=== PATIENT | male | born 1965 | race Caucasian/White ===

== ENCOUNTER 2017-03-13 20:44 | Emergency (ER) | payer OTHER ==
[~2017-03-13] VITALS: Ht 177.8 cm; Wt 81.1 kg
[~2017-03-13 20:44] MED LIST: LANSO15 PO; MUPI2CRE3 EX; TAB-TAB PO
[2017-03-13 20:47] VITALS: BP 144/67; PULSE 73; RESP 16; TEMP 98.3; O2SAT 98
--- NOTE | 2017-03-13 21:06 | PD ---
HPI Chief Complaint: Injury Time Seen by Provider: 20:54 Travel History International Travel<30 days: No Contact w/Intl Traveler<30days: No Traveled to known affect area: No History of Present Illness HPI The patient is a 51-year-old male who presents to the emergency department for nasal pain and swelling. The patient was playing softball earlier today when he dove, landing on his face. He does complain of an abrasion over the nasal bridge as well as some swelling to the nose. He does complain of initial bleeding from the nares bilaterally which has resolved. He also notes a superficial abrasion to left forehead. He denied any loss of consciousness with the injury. He denies any abrasions to the hands her knees. He is able to and bleed without difficulty, denies any significant headache. He denies taking any anticoagulants. Symptoms are mild, exacerbated after sliding tenderness softball game, and the bleeding resolved on its own. He denies any neck pain. The patient's last tetanus shot is unknown. [facility] Past Medical History Narrative Medical GERD Past Surgical History Narrative Surgical tonsillectomy, wisdom tooth surgery Social History Tobacco Use: No Allergies-Medications (Allergen,Severity, Reaction): Coded Allergies: No Known Allergies (Unverified , 12/22/15) Reported Meds & Prescriptions Reported Meds & Active Scripts Active Review of Systems Eyes: No: Visual changes HENT: Positive: Nosebleed, No: Headaches, Neck Pain Musculoskeletal: No: Pain Skin: Positive Other (abrasions over the nasal bridge and left forehead) Neurologic: No: Change in Mentation Physical Exam Narrative GENERAL: Awake, alert, very pleasant 51-year-old male who appears younger than his stated age and is in no acute respiratory distress. SKIN: Focused skin assessment warm/dry. Small superficial abrasion noted over the left frontal forehead as well as a superficial abrasion over the left nasal bridge. HEAD: Mild swelling of the nasal bridge with abrasion noted. EYES: Pupils equal and round. Pupils are 3 mm bilateral and reactive. EOMs are intact. Patient is able to see fingers from a distance of 2 feet without difficulty. ENT: Dry blood in the right naris noted. No visible septal hematoma or palpable cephalhematoma. NECK: Trachea midline. No JVD. MUSCULOSKELETAL: No obvious deformities. No clubbing. No cyanosis. No edema. No abrasions or trauma noted to the palms or knees. NEUROLOGICAL: Awake and alert. No obvious cranial nerve deficits. Motor grossly within normal limits. Normal speech. Nonfocal. Oriented 4. PSYCHIATRIC: Appropriate mood and affect; insight and judgment normal. Data Data Last Documented VS Vital Signs Date Time Temp Pulse Resp B/P (MAP) Pulse Ox O2 Delivery O2 Flow Rate FiO2 03/13/17 20:47 98.3 73 16 144/67 (92) 98 Orders Orders Nasal Bones (Min 3 Vws) (03/13/17 ) Tetanus/Diphtheria Tox Adult (Tetanus/Di (03/13/17 21:15) MDM Medical Decision Making Medical Screen Exam Complete: Yes Emergency Medical Condition: Yes Medical Record Reviewed: Yes Interpretation(s) x-ray of the nasal bones reveals an unremarkable examination of the nasal bones. No evidence of fracture. Differential Diagnosis Differential diagnosis includes nasal fracture, septal hematoma, nasal bleed, closed head injury, concussion, intracranial hemorrhage, abrasion. Narrative Course X-ray of the nasal bones was obtained. The patient's tetanus shot was updated. X-ray of the nasal bones is unremarkable. Patient is stable for outpatient follow-up. Diagnosis Primary Impression: Abrasion Additional Impression: Nasal contusion Qualified Codes: S00.33XA - Contusion of nose, initial encounter Patient Instructions: General Instructions Additional Instructions: Please provide a patient a copy of his x-ray results at discharge. Ice the nose as needed. Polysporin to the abrasions. [id number] ibuprofen or Tylenol as needed. Return if symptoms worsen or progress. Med/Other Pt SpecificInfo: No Change to Meds Disposition: 01 DISCHARGE HOME Condition: Stable Arnoldo Alston MD Mar 13, 2017 21:06
[2017-03-13] MEDS ORDERED: TETANUS/DIPHTHERIA TOXOID ADULT 0.5 ML VIAL IM ONE (21:15)
--- NOTE | 2017-03-13 21:44 | RADRPT ---
EXAM DATE/TIME: 03/13/2017 21:31 [place] COMPARISON: No previous studies available for comparison. INDICATIONS : Nose abrasion. Patient hit nose playing softball tonight. MEDICAL HISTORY : None. SURGICAL HISTORY : None. ENCOUNTER: Initial ACUITY: 1 day PAIN SCORE: 4/10 LOCATION: Nose. FINDINGS: Lateral and Vazquez views of the nasal bones demonstrate no evidence of fracture. There is no signifi cant soft tissue swelling. The infraorbital rims are intact. CONCLUSION: Unremarkable examination of the nasal bones. Kenney Vera Jr., MD on March 13, 2017 at 21:41 Board Certified Radiologist. This report was verified electronically.
== END 2017-03-13 22:10 | disposition home or self-care (01) ==
LOC: PHEFT 20:44
DX: S00.31XA Abrasion of nose, initial encounter (principal); S00.33XA Contusion of nose, initial encounter; W18.39XA Other fall on same level, initial encounter; Y93.64 Activity, baseball; Z23 Encounter for immunization
CPT/HCPCS: 70160; 90471; 90714